=== PATIENT | male | born 1995 | race Caucasian/White ===

== ENCOUNTER 2024-01-03 13:18 | Outpatient (OUT) | payer BC, SELFPAY ==
[2024-01-03 14:00] VITALS: BMI 30.6
--- NOTE | 2024-01-03 15:06 | SUR.PREOP ---
01/03/24 Pt contacted to reschedule time
--- NOTE | 2024-01-03 15:10 | PC.NURSE ---
1425 Using sterile technique attempted to place 16 slovenian pappas catheter without success. Attempted to place a 10 slovenian pappas catheter without success and causing pt much discomfort. No evidence of yellow urine seen. 1435 Pt assisted up to bathroom to clean up . Pt states that he did void some on the toilet while he was in there. Called Dr Ambriz and made him aware of events. [address] Guallpa's of[facility] and made them aware of inability to do voiding cystourethrogram. They will give Dr Guallpa the message once she is finished in surgery. Pt is scheduled to see Dr Guallpa in [place] tomorrow am. Instructed pt and to go to the ER if unable to void over night untill they see Dr Guallpa.
== END 2024-01-03 13:55 ==
LOC: FL 13:21
PROVIDERS: Radiology Diagnostic Radiology; PCP Family Medicine; Visit Provider Urology
DX: N35.819 Other urethral stricture, male, unspecified site (principal)
CPT/HCPCS: 74455